=== PATIENT | male | born 1980 | race Caucasian/White ===

== ENCOUNTER 2025-01-08 13:45 | Emergency (ER) | payer MEDICAID ==
[~2025-01-08] VITALS: Ht 172.7 cm; Wt 76.4 kg
[2025-01-08 13:49] VITALS: TEMP 97.9
[2025-01-08] MEDS: HYDROGEN PEROXIDE 118 ML SOLUTION TP ONE (15:39)
[2025-01-08 15:40] VITALS: BP 124/88; PULSE 95; RESP 16; O2SAT 99
[2025-01-08] MEDS ORDERED: CORTSUSP AD (16:42)
== END 2025-01-08 17:09 | disposition home or self-care (01) ==
LOC: EMS 13:45
DX: H61.21 Impacted cerumen, right ear (principal); H66.91 Otitis media, unspecified, right ear; W44.F9XA Other object of natural or organic material, entering into or through a natural orifice, initial encounter
CPT/HCPCS: 69209; 99282; 99284; Z7502; Z7610